=== PATIENT | female | born 1960 | race Caucasian/White ===

== ENCOUNTER → 2016-11-24 | Outpatient (CLI) | payer OTHER ==
[~2016-11-24] MED LIST: AMARYL4 MG PO; ASPIRIN E.C. 8181 MG PO; BYDUREON2MG SQ; BYETTA 10M600 MCG/SY SC; CANA100T PO; GLUCOPHAGE500 MG/TAB PO; JANUVIA 100MG100 MG PO; LANTUS SOLOS100 U/ML SQ; LIPITOR 40MG TA40 MG PO; PRAVACHOL 40MG40 MG PO; PRINIVIL10 MG PO; SYNTHROID0.088 MG/T PO; SYNTHROID0.125 MG/T PO; TENORMIN 5050 MG/TAB PO; Trazodone HCL; bupropion PO; buspirone
== END ==
LOC: MC.RAD 10:00
DX: Z12.31 Encounter for screening mammogram for malignant neoplasm of breast (principal)

== ENCOUNTER 2017-11-29 14:59 | Outpatient (RCR) | payer OTHER | END 2017-12-02 15:30 | disposition home or self-care (01) | LOC: WSOH 14:59 | DX: G56.01 Carpal tunnel syndrome, right upper limb (principal); X50.3XXD Overexertion from repetitive movements, subsequent encounter; E11.8 Type 2 diabetes mellitus with unspecified complications; Y92.59 Other trade areas as the place of occurrence of the external cause; Y99.0 Civilian activity done for income or pay; Z79.84 Long term (current) use of oral hypoglycemic drugs; Z79.899 Other long term (current) drug therapy | CPT/HCPCS: 24091; A6549 ==

== ENCOUNTER 2018-01-10 14:29 | Outpatient (RCR) | payer OTHER | END 2018-01-11 10:24 | disposition home or self-care (01) | LOC: WSOH 14:29 | DX: G56.01 Carpal tunnel syndrome, right upper limb (principal); E11.9 Type 2 diabetes mellitus without complications; I10 Essential (primary) hypertension; X50.3XXA Overexertion from repetitive movements, initial encounter; Y92.59 Other trade areas as the place of occurrence of the external cause; Y99.0 Civilian activity done for income or pay; Z79.84 Long term (current) use of oral hypoglycemic drugs; Z79.899 Other long term (current) drug therapy; Z79.1 Long term (current) use of non-steroidal anti-inflammatories (NSAID) ==